=== PATIENT | female | born 1950 | race Caucasian/White ===

== ENCOUNTER 2017-09-13 15:17 | Emergency (ER) | payer OTHER ==
[~2017-09-13] VITALS: Ht 160 cm; Wt 79.4 kg
[~2017-09-13 15:17] MED LIST: DIAZEPAM5 MG PO; FLO4 PO; IMODIUM2 MG PO; KPHOS PO; NEU300 PO; NORCO1 TA2 PO; TAMOXIFEN CITRA20 MG PO; TORADOL10 MG PO; TRAMADOL HCL50 MG PO
[2017-09-13 15:30] VITALS: Ht 160 cm; Wt 79.4 kg
[2017-09-13 16:23] LABS: BASOPHIL % 0.2 % (0-2); PLATELET COUNT 190 x10^3mcL (130-400)
[2017-09-13 16:24] LABS: CALCIUM 8.5 mg/dL (8.5-10.1); CARBON DIOXIDE 27.7 mmol/L (21-32); CHLORIDE SERUM 103 mmol/L (98-107); CREATININE SERUM 0.9 mg/dL (0.6-1.0); GFR1 > 60 mL/min; GLUCOSE SERUM 86 mg/dL (74-106); POTASSIUM SERUM 4.7 mmol/L (3.5-5.1); SODIUM SERUM 135 mmol/L (136-145)
[2017-09-13 16:29] LABS: ALKALINE PHOSPHATASE 40 U/L (46-116); ALT/SGPT 28 U/L (14-59); AST/SGOT 23 U/L (15-37); BILIRUBIN TOTAL 0.2 mg/dL (0.20-1.00); MAGNESIUM 2.1 mg/dL (1.8-2.4); TOTAL PROTEIN, SERUM 6.8 g/dL (6.4-8.2)
[2017-09-13 16:33] LABS: ALBUMIN 3.3 g/dL (3.4-5.0)
[2017-09-13 16:39] LABS: FREE T4 0.88 ng/dL (0.76-1.46); FREE THYROXINE INDEX 2.2 ug/dL (1.4-4.5); T4(THYROXINE) 8.1 ug/dL (4.7-13.3)
[2017-09-13 16:41] LABS: T3 TOTAL 0.88 ng/mL
[2017-09-13 16:45] LABS: AMPHETAMINE QUAL UR NONE DETECTED (NEG <=1000)
[2017-09-13 18:16] VITALS: BP 127/68
== END 2017-09-13 18:16 | disposition home or self-care (01) ==
LOC: ED 15:17
PROVIDERS: Emergency Medicine
DX: R00.2 Palpitations (principal); K21.9 Gastro-esophageal reflux disease without esophagitis
CPT/HCPCS: 36415; 83880; 84439

== ENCOUNTER 2017-10-28 00:59 | Emergency (ER) | payer OTHER ==
[~2017-10-28] VITALS: Ht 162.6 cm; Wt 76.2 kg
[2017-10-28 01:14] VITALS: Ht 162.6 cm; Wt 76.2 kg
[2017-10-28 01:55] LABS: BASOPHIL % 0.3 % (0-2); PLATELET COUNT 200 x10^3mcL (130-400); RED CELL DISTRIBUTION WIDTH 12.3 % (11.5-14.5)
[2017-10-28 01:59] LABS: CALCIUM 8.1 mg/dL (8.5-10.1); CARBON DIOXIDE 29.9 mmol/L (21-32); CHLORIDE SERUM 106 mmol/L (98-107); CREATININE SERUM 0.9 mg/dL (0.6-1.0); GFR1 > 60 mL/min; GLUCOSE SERUM 103 mg/dL (74-106); POTASSIUM SERUM 4.3 mmol/L (3.5-5.1); SODIUM SERUM 141 mmol/L (136-145)
[2017-10-28 02:05] LABS: ALKALINE PHOSPHATASE 47 U/L (46-116); ALT/SGPT 24 U/L (14-59); AST/SGOT 24 U/L (15-37); BILIRUBIN TOTAL 0.21 mg/dL (0.20-1.00); LIPASE 54 IU/L (73-393); TOTAL PROTEIN, SERUM 6.3 g/dL (6.4-8.2)
[2017-10-28 02:08] LABS: ALBUMIN 2.9 g/dL (3.4-5.0)
[2017-10-28 02:44] LABS: UA SPECIFIC GRAVITY 1.025 (1.005-1.035); microscopic required? YES; urine erythrocyte TRACE (NEGATIVE)
[2017-10-28 03:57] VITALS: BP 138/82
== END 2017-10-28 03:57 | disposition home or self-care (01) ==
LOC: ED 00:59
PROVIDERS: Emergency Medicine
DX: K59.00 Constipation, unspecified (principal); K21.9 Gastro-esophageal reflux disease without esophagitis
CPT/HCPCS: J7030

== ENCOUNTER 2018-01-06 01:45 | Inpatient (IN) | payer OTHER ==
[~2018-01-06] VITALS: Ht 154.9 cm; Wt 82.7 kg
[2018-01-06 01:54] VITALS: Ht 154.9 cm; Wt 82.7 kg
[2018-01-06 02:46] LABS: CALCIUM 9.8 mg/dL (8.5-10.1); CREATININE SERUM 1.1 mg/dL (0.6-1.0); POTASSIUM SERUM 4.3 mmol/L (3.5-5.1)
[2018-01-06 02:51] LABS: ALBUMIN 3.4 g/dL (3.4-5.0); BILIRUBIN TOTAL 0.25 mg/dL (0.20-1.00); TOTAL PROTEIN, SERUM 7.2 g/dL (6.4-8.2)
[2018-01-06 02:59] LABS: BASOPHIL % 1.2 % (0-2); PLATELET COUNT 280 x10^3mcL (130-400); RED CELL DISTRIBUTION WIDTH 13.5 % (11.5-14.5)
[2018-01-06 03:00] LABS: microscopic required? YES; urine erythrocyte TRACE (NEGATIVE)
[2018-01-06] MEDS ORDERED: TRAMADOL HCL50 MG PO (03:57)
[2018-01-06] MEDS ORDERED: GABAPENTIN TAB600 M1 PO (03:58)
[2018-01-06] MEDS ORDERED: NORCO1 TA2 PO (03:58)
[2018-01-06 04:46] LABS: FREE T4 1.04 ng/dL (0.76-1.46); FREE THYROXINE INDEX 3.5 ug/dL (1.4-4.5); T4(THYROXINE) 11.3 ug/dL (4.7-13.3)
[2018-01-06 04:49] LABS: T3 TOTAL 1.9 ng/mL
[2018-01-06 04:50] LABS: CHOLESTEROL/HDL RATIO 2.1; MAGNESIUM 2.1 mg/dL (1.8-2.4); PHOSPHOROUS 4.9 mg/dL (2.5-4.9)
[2018-01-06 04:58] VITALS: BP 143/65
[2018-01-06 11:02] VITALS: BP 157/83
[2018-01-06 14:49] VITALS: BP 127/71
[2018-01-06 18:27] VITALS: BP 107/47
[2018-01-06 21:27] VITALS: BP 102/44
[2018-01-07 05:00] VITALS: BP 105/51
[2018-01-07 07:12] LABS: BASOPHIL % 0.5 % (0-2); PLATELET COUNT 168 x10^3mcL (130-400); RED CELL DISTRIBUTION WIDTH 14.4 % (11.5-14.5)
[2018-01-07 07:22] LABS: CALCIUM 7.9 mg/dL (8.5-10.1); CARBON DIOXIDE 28.5 mmol/L (21-32); CHLORIDE SERUM 112 mmol/L (98-107); CREATININE SERUM 0.6 mg/dL (0.6-1.0); GFR1 > 60 mL/min; GLUCOSE SERUM 93 mg/dL (74-106); MAGNESIUM 1.9 mg/dL (1.8-2.4); PHOSPHOROUS 2.6 mg/dL (2.5-4.9); POTASSIUM SERUM 3.6 mmol/L (3.5-5.1); SODIUM SERUM 141 mmol/L (136-145)
[2018-01-07 08:07] VITALS: BP 133/68
[2018-01-07 12:57] VITALS: BP 124/61
[2018-01-07] MEDS ORDERED: CIPRO250 MG PO (15:44)
[2018-01-07] MEDS ORDERED: LAC PO (15:45)
[2018-01-07] MEDS ORDERED: PRO40 PO (16:01)
[2018-01-07 16:44] VITALS: BP 124/61
== END 2018-01-07 19:17 | disposition home or self-care (01) | DRG 388 ==
LOC: ED 01:45 → DU 03:44
PROVIDERS: Emergency Medicine; Internal Medicine
DX: K56.50 Intestinal adhesions [bands], unspecified as to partial versus complete obstruction (principal); N17.0 Acute kidney failure with tubular necrosis; E87.2 Acidosis; N39.0 Urinary tract infection, site not specified; E44.1 Mild protein-calorie malnutrition; N20.0 Calculus of kidney; K21.9 Gastro-esophageal reflux disease without esophagitis; E03.9 Hypothyroidism, unspecified; E66.9 Obesity, unspecified; Z87.442 Personal history of urinary calculi; Z85.3 Personal history of malignant neoplasm of breast; Z68.34 Body mass index [BMI] 34.0-34.9, adult
CPT/HCPCS: 84439; J0696; J1885; J2270; J2405; J2543; J7030; Q0092; Q9967

== ENCOUNTER 2019-01-06 20:36 | Emergency (ER) | payer OTHER ==
[~2019-01-06] VITALS: Ht 157.5 cm; Wt 78.5 kg
[~2019-01-06 20:36] MED LIST changes: +CIPRO250 MG PO; +GABAPENTIN TAB600 M1 PO; +LAC PO; +PRO40 PO
[2019-01-06 20:39] VITALS: Ht 157.5 cm; Wt 78.5 kg
[2019-01-06 21:38] VITALS: BP 146/83
== END 2019-01-06 21:38 | disposition home or self-care (01) ==
LOC: ED 20:36
DX: M54.40 Lumbago with sciatica, unspecified side (principal); K21.9 Gastro-esophageal reflux disease without esophagitis; Z85.3 Personal history of malignant neoplasm of breast
CPT/HCPCS: 82962

== ENCOUNTER 2020-04-05 14:39 | Emergency (ER) | payer OTHER ==
[~2020-04-05] VITALS: Ht 154.9 cm; Wt 75.7 kg
[2020-04-05 14:51] VITALS: Ht 154.9 cm; Wt 75.7 kg
[2020-04-05 17:04] LABS: BASOPHIL % 0.4 % (0-2); PLATELET COUNT 232 x10^3mcL (130-400); RED CELL DISTRIBUTION WIDTH 13.6 % (11.5-14.5)
[2020-04-05 17:10] LABS: UA SPECIFIC GRAVITY 1.025 (1.005-1.035); microscopic required? YES; urine erythrocyte TRACE (NEGATIVE)
[2020-04-05 17:34] LABS: AMPHETAMINE QUAL UR NONE DETECTED (See below)
[2020-04-05 17:52] LABS: CARBON DIOXIDE 28.1 mmol/L (21-32); CHLORIDE SERUM 103 mmol/L (98-107); CREATININE SERUM 0.8 mg/dL (0.6-1.0); GFR1 > 60 mL/min; GLUCOSE SERUM 124 mg/dL (74-106); SODIUM SERUM 139 mmol/L (136-145)
[2020-04-05 18:04] LABS: ALBUMIN 3.4 g/dL (3.4-5.0); ALKALINE PHOSPHATASE 87 U/L (46-116); ALT/SGPT 24 U/L (14-59); AST/SGOT 20 U/L (15-37); BILIRUBIN TOTAL 0.2 mg/dL (0.20-1.00); CHOLESTEROL 176 mg/dL (<200); HDL CHOLESTEROL 62 mg/dL (40-60); LIPASE 67 IU/L (73-393); T4(THYROXINE) 6.6 ug/dL (4.7-13.3); TOTAL PROTEIN, SERUM 7.3 g/dL (6.4-8.2)
[2020-04-05 19:22] VITALS: BP 127/68
== END 2020-04-05 19:22 | disposition home or self-care (01) ==
LOC: ED 14:39
PROVIDERS: Emergency Medicine
DX: R42 Dizziness and giddiness (principal); R55 Syncope and collapse; R11.0 Nausea; G89.29 Other chronic pain; M54.5 Low back pain; K21.9 Gastro-esophageal reflux disease without esophagitis; Z85.3 Personal history of malignant neoplasm of breast; Z88.8 Allergy status to other drugs, medicaments and biological substances; Z88.5 Allergy status to narcotic agent
CPT/HCPCS: J7030; J8597; Q0092

== ENCOUNTER 2020-06-10 01:45 | Emergency (ER) | payer OTHER ==
[~2020-06-10] VITALS: Ht 160 cm; Wt 77.2 kg
[2020-06-10 03:52] LABS: BASOPHIL % 0.2 % (0.2-1.3); PLATELET COUNT 220 x10^3mcL (179-408)
[2020-06-10 03:53] LABS: RED CELL DISTRIBUTION WIDTH 15.1 % (12.3-17.7)
[2020-06-10 04:18] LABS: CALCIUM 9.4 mg/dL (8.5-10.1); CARBON DIOXIDE 29.5 mmol/L (21-32); POTASSIUM SERUM 4.1 mmol/L (3.5-5.1)
[2020-06-10 04:22] LABS: ALBUMIN 3.8 g/dL (3.4-5.0); BILIRUBIN TOTAL 0.38 mg/dL (0.20-1.00); TOTAL PROTEIN, SERUM 7.6 g/dL (6.4-8.2)
[2020-06-10 07:00] VITALS: BP 145/68
== END 2020-06-10 07:00 | disposition home or self-care (01) ==
LOC: ED 01:45
DX: R10.10 Upper abdominal pain, unspecified (principal); K21.9 Gastro-esophageal reflux disease without esophagitis; Z88.5 Allergy status to narcotic agent; Z90.89 Acquired absence of other organs